=== PATIENT | female | born 1950 | race Caucasian/White ===

== ENCOUNTER 2018-02-05 07:20 | Outpatient (CLI) | payer MEDICARE ==
--- NOTE | 2018-02-05 08:06 | ULT ---
BILATERAL CAROTID DUPLEX ULTRASOUND WITH SPECTRAL ANALYSIS AND COLOR FLOW EVALUATION: Date: 02/05/18 HISTORY: Syncope. FINDINGS: Bower scale, color flow, Doppler evaluation, and spectral analysis of the bilateral carotid arteries i s performed with 2D imaging. There is mild atherosclerotic plaque seen within the region of the right carotid bulb and proximal ri ght internal carotid artery. No significant atherosclerotic plaque is seen within the left internal c arotid artery. There is less than 50% maximal stenosis in the bilateral internal carotid arteries according to the I CA/CCA ratios. Peak systolic velocity in the right ICA is 70.4 cm/second, with an ICA/CCA ratio of 1. 0. Peak systolic velocity in the left ICA is 78.7 cm/second, with an ICA/CCA ratio of 0.92. Antegrade flow is demonstrated in the vertebral arteries bilaterally. IMPRESSION: No hemodynamically significant stenosis in bilateral internal carotid arteries. POS: BALJINDER
[2018-02-05 08:14] LABS: CRP (Inflammatory) Less than 0.50 mg/dL (= or < 0.5); Cardiac Risk 3.8 (Less than 4.5); Cholesterol 257 mg/dl (< 200 Desired); HDL Cholesterol 67 mg/dL (>60 Neg Risk); LDL Cholesterol, Calculated 175 mg/dL; Triglycerides 75 mg/dL (Less than 150)
== END 2018-02-05 07:21 | disposition home or self-care (01) ==
LOC: SCSULT 07:20
PROVIDERS: ATTEND Internal Medicine
DX: R55 Syncope and collapse (principal); R42 Dizziness and giddiness; E03.9 Hypothyroidism, unspecified; E78.5 Hyperlipidemia, unspecified; M25.50 Pain in unspecified joint
CPT/HCPCS: 36415; 80061; 84443; 85652; 86140; 93880

== ENCOUNTER 2018-03-09 14:50 | Outpatient (CLI) | payer MEDICARE | END 2018-03-09 14:51 | disposition home or self-care (01) | LOC: BICRAD 14:50 | PROVIDERS: ATTEND Physical Medicine & Rehabilitation | DX: M25.512 Pain in left shoulder (principal) ==

== ENCOUNTER 2018-11-26 17:02 | Emergency (ER) | payer MEDICARE ==
--- NOTE | 2018-11-26 18:06 | RAD ---
3 views left wrist: 11/26/2018 COMPARISON: None HISTORY: Injury, trauma, pain FINDINGS: There is severe degenerative change involving the first carpometacarpal joint. No acute fra cture or evidence of dislocation is seen. If symptoms persist, follow-up in 7-10 days with dedicated scaphoid views advised. IMPRESSION: No displaced fracture or evidence of dislocation.
--- NOTE | 2018-11-26 18:08 | RAD ---
Left hand 3 views: 11/26/2018 COMPARISON: None HISTORY: Injury, trauma, pain FINDINGS: No fracture or dislocation. No radiopaque foreign body or subcutaneous gas. There is promin ent degenerative change at the first carpometacarpal joint. There is degenerative change involving multiple distal interphalangeal joints. No acute displaced fracture or evidence of dislocation is see n. IMPRESSION: No acute findings. Degenerative changes as detailed above.
--- NOTE | 2018-11-26 18:10 | RAD ---
Left elbow 4 views: 11/26/2018 COMPARISON: None HISTORY: Pain, trauma FINDINGS: No fracture or dislocation. No radiopaque foreign body or subcutaneous gas. The lateral exa mination demonstrates no elbow joint effusion. IMPRESSION: No acute findings.
== END 2018-11-26 18:12 | disposition home or self-care (01) ==
LOC: SCSER 17:02
DX: M25.532 Pain in left wrist (principal); M25.522 Pain in left elbow; E03.9 Hypothyroidism, unspecified; E78.5 Hyperlipidemia, unspecified; F32.9 Major depressive disorder, single episode, unspecified; W18.30XA Fall on same level, unspecified, initial encounter; Y92.096 Garden or yard of other non-institutional residence as the place of occurrence of the external cause

== ENCOUNTER 2019-08-13 12:51 | Outpatient (CLI) | payer MEDICARE ==
--- NOTE | 2019-08-13 15:17 | MRI ---
MRI LUMBAR SPINE PERFORMED WITHOUT CONTRAST ENHANCEMENT: Date: 08/13/2019 HISTORY: Chronic low back pain and left lower extremity radiculopathy. FINDINGS: The vertebral bodies are normal in height. There is disc narrowing at L2-3. There are some generalize d disc desiccation changes present. There is no significant periaortic adenopathy. T2 hyperintense le sions involving the right kidney are most likely cysts. T12-L1: Unremarkable. L1-2: Degenerative facet and ligamentous hypertrophic changes are associated with a mild degree of c anal stenosis. L2-3: Disc bulge and facet and ligamentous hypertrophic changes are associated with a mild to modera te degree of canal narrowing. There is some mild right-sided foraminal narrowing also present. L3-4: There is a fairly prominent disc bulge, with bulging more prominent on the right side. There i s a moderate degree of canal stenosis related to the bulging, as well as facet and ligamentous hypert rophic changes, and mild right foraminal narrowing related to the right lateral disc bulge versus sli ghtly protrusion. L4-5: Moderately severe canal stenosis related to facet and ligamentous hypertrophic changes are see n. Very minimal spondylolisthesis is present. No significant foraminal narrowing. L5-S1: Degenerative facet changes are seen without significant canal stenosis. There is moderately s evere left foraminal narrowing. IMPRESSION: Multilevel areas of canal and foraminal stenosis as described above. POS: BALJINDER
== END 2019-08-13 12:52 | disposition home or self-care (01) ==
LOC: SCSMRI 12:51
PROVIDERS: ATTEND Family Medicine
DX: M51.17 Intervertebral disc disorders with radiculopathy, lumbosacral region (principal); M48.061 Spinal stenosis, lumbar region without neurogenic claudication; M48.07 Spinal stenosis, lumbosacral region
CPT/HCPCS: 72148

== ENCOUNTER 2020-07-18 11:52 | Outpatient (CLI) | payer MEDICARE ==
--- NOTE | 2020-07-18 12:31 | RAD ---
EXAM: XR Abdomen 1 View/KUB PROVIDED CLINICAL HISTORY: Chronic constipation COMPARISON: None FINDINGS: The visualized lung bases are free of significant opacity. There is conspicuous colonic fecal retenti on. Bowel gas pattern is nonobstructive. No radiographically apparent urinary tract calculi. The osseous structures demonstrate no acute abnormality. IMPRESSION: Conspicuous colonic fecal retention.
== END 2020-07-18 11:53 | disposition home or self-care (01) ==
LOC: SCSRAD 11:52
PROVIDERS: ATTEND Internal Medicine Gastroenterology
DX: K59.09 Other constipation (principal); M85.80 Other specified disorders of bone density and structure, unspecified site
CPT/HCPCS: 74018

== ENCOUNTER 2022-05-19 19:00 | Outpatient (CLI) | payer MEDICARE | END 2022-05-19 19:01 | disposition home or self-care (01) | LOC: SLEEPLAB 19:00 | PROVIDERS: ATTEND Family Medicine Sports Medicine | DX: G47.9 Sleep disorder, unspecified (principal); R53.83 Other fatigue; R06.83 Snoring; G47.10 Hypersomnia, unspecified; F32.9 Major depressive disorder, single episode, unspecified; G47.00 Insomnia, unspecified | CPT/HCPCS: 95810 ==

== ENCOUNTER 2022-05-20 12:51 | Outpatient (CLI) | payer MEDICARE | END 2022-05-20 12:52 | disposition home or self-care (01) | LOC: SCSMRI 12:51 | PROVIDERS: ATTEND Anesthesiology Pain Medicine | DX: M47.22 Other spondylosis with radiculopathy, cervical region (principal); M47.813 Spondylosis without myelopathy or radiculopathy, cervicothoracic region | CPT/HCPCS: 72141 ==

== ENCOUNTER 2022-09-10 09:59 | Outpatient (CLI) | payer MEDICARE | END 2022-09-10 10:00 | disposition home or self-care (01) | LOC: SCSRAD 09:59 | PROVIDERS: ATTEND Anesthesiology Pain Medicine | DX: M25.562 Pain in left knee (principal) ==

== ENCOUNTER 2022-10-10 14:59 | Outpatient (CLI) | payer MEDICARE | END 2022-10-10 15:00 | disposition home or self-care (01) | LOC: SCSMRI 14:59 | PROVIDERS: ATTEND Anesthesiology Pain Medicine | DX: M51.16 Intervertebral disc disorders with radiculopathy, lumbar region (principal); M47.26 Other spondylosis with radiculopathy, lumbar region; M41.9 Scoliosis, unspecified; R93.7 Abnormal findings on diagnostic imaging of other parts of musculoskeletal system; M48.061 Spinal stenosis, lumbar region without neurogenic claudication; M51.37 Other intervertebral disc degeneration, lumbosacral region; M48.07 Spinal stenosis, lumbosacral region; Z98.890 Other specified postprocedural states | CPT/HCPCS: 72148 ==

== ENCOUNTER 2023-03-04 14:56 | Outpatient (CLI) | payer MEDICARE | END 2023-03-04 14:57 | disposition home or self-care (01) | LOC: SCSRAD 14:56 | PROVIDERS: ATTEND Family Medicine | DX: M79.671 Pain in right foot (principal); M19.071 Primary osteoarthritis, right ankle and foot ==

== ENCOUNTER 2023-06-11 10:44 | Outpatient (CLI) | payer MEDICARE | END 2023-06-11 10:45 | disposition home or self-care (01) | LOC: RAD 10:44 | PROVIDERS: ATTEND Otolaryngology | DX: R13.10 Dysphagia, unspecified (principal); R63.30 Feeding difficulties, unspecified | CPT/HCPCS: 74230 ==